=== PATIENT | male | born 1995 | race Caucasian/White ===

== ENCOUNTER 2018-11-28 07:27 | Emergency (ER) | payer OTHER, SELFPAY ==
[2018-11-28 07:27] VITALS: BP 148/81; PULSE 76; RESP 16; TEMP 36.6; O2SAT 98; BMI 37.6
[2018-11-28 07:29] VITALS: TEMP 36.6
--- NOTE | 2018-11-28 07:38 | RAD_ITS ---
STUDY: X-RAY CHEST REASON FOR EXAM: Male, 23 years old. Left-sided chest pain. TECHNIQUE: PA and lateral views of the chest. COMPARISON: None. FINDINGS: The lungs are clear and expanded. There is no demonstrated pleural abnormality. Normal size heart. Normal mediastinum and josh. Normal visualized pulmonary arteries. Normal visualized aortic arch and descending thoracic aorta. Normal visualized thoracic spine. Normal visualized ribs, clavicles, and shoulders. There is no demonstrated abnormality of the visualized soft tissue structures of the upper abdomen. RAD/Chest PA and Lateral IMPRESSION: Normal x-ray examination of the chest. Electronically Signed: Al Zhang MD at 8:52 EST , Service support ,
[2018-11-28] MEDS: Ketorolac 30 MG/ML Syringe IV (07:52)
[2018-11-28 08:35] VITALS: BP 155/76; PULSE 65; RESP 17; TEMP 36.8; O2SAT 98
[2018-11-28 09:09] LABS: D-Dimer Quantitative (DVT/PE) < 0.27 FEU/ug/m (0.27-0.49)
--- NOTE | 2018-11-28 09:47 | ED.VISSUMM ---
- ER Visit Summary Date of Service: 11/28/18 Chief Complaint: [Left-sided chest pain History of Present Illness: The patient is a 23 M [presents to the emergency department with left-sided chest discomfort that started yesterday. Patient states the pain came on gradually. Patient hurts to take a deep breath and certain movements cause increased pain. Patient having a hard time laying on his left side secondary to pain. He denies any trauma. Patient states that he had cold-like symptoms last week but he only felt sick for 1 or 2 days and then felt significantly improved. Patient's had a mild cough and some stuffy nose otherwise. He has had no fevers. Patient rates his pain anywhere from a 6-9 out of 10. Patient did have recent travel in early September he drove from [place] to [place]. He has no history of PE or DVT. No recent surgeries.] Physical Examination: [HEENT-PERRLA, EOMI. Cranial nerves II through XII grossly intact. TMs clear. Mucous membranes moist. No adenopathy. Cardiovascular-regular rate and rhythm without murmur or ectopy Lungs-clear to auscultation, chest wall stable without crepitus or subcu emphysema. I am unable to reproduce his pain with palpation of the left chest wall. Certain movements do cause him increased pain however. Abdomen-normoactive bowel sounds, soft, nontender, no rebound or rigidity, no peritoneal signs. Extremities-intact ?4, normal range of motion, normal pulses, atraumatic] Test Results: [D-dimer was normal at less than 0.27. Chest x-ray was normal.] Emergency Department Course and Treatment: [Patient was given Toradol 30 mill grams IV and significantly felt improved and now rates his pain a 3 out of 10.] Treatment Plan: [Patient will be given a prescription for Naprosyn and [place] for severe pain. I suspect his pain likely musculoskeletal.] Disposition: [Discharged home in stable condition. 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 Impression: [Chest pain-etiology uncertain] This note was generated with [employer] software. It may contain incorrect words, spelling, and punctuation that were not noted in review of the chart prior to signing ED Disposition - Plan for ED Patient: Chief Complaint: Chest Other Referrals: Care Physician,No Primary [Primary Care Provider] -
--- NOTE | 2018-11-28 09:50 | ED.DCSUM_ITS ---
- ER Visit Summary Date of Service: 11/28/18 Chief Complaint: [Left-sided chest pain History of Present Illness: The patient is a 23 M [presents to the emergency department with left-sided chest discomfort that started yesterday. Patient states the pain came on gradually. Patient hurts to take a deep breath and certain movements cause increased pain. Patient having a hard time laying on his left side secondary to pain. He denies any trauma. Patient states that he had cold-like symptoms last week but he only felt sick for 1 or 2 days and then felt significantly improved. Patient's had a mild cough and some stuffy nose otherwise. He has had no fevers. Patient rates his pain anywhere from a 6-9 out of 10. Patient did have recent travel in early September he drove from [place] to [place]. He has no history of PE or DVT. No recent surgeries.] Physical Examination: [HEENT-PERRLA, EOMI. Cranial nerves II through XII grossly intact. TMs clear. Mucous membranes moist. No adenopathy. Cardiovascular-regular rate and rhythm without murmur or ectopy Lungs-clear to auscultation, chest wall stable without crepitus or subcu emphysema. I am unable to reproduce his pain with palpation of the left chest wall. Certain movements do cause him increased pain however. Abdomen-normoactive bowel sounds, soft, nontender, no rebound or rigidity, no peritoneal signs. Extremities-intact ?4, normal range of motion, normal pulses, atraumatic] Test Results: [D-dimer was normal at less than 0.27. Chest x-ray was normal.] Emergency Department Course and Treatment: [Patient was given Toradol 30 mill grams IV and significantly felt improved and now rates his pain a 3 out of 10.] Treatment Plan: [Patient will be given a prescription for Naprosyn and [place] for severe pain. I suspect his pain likely musculoskeletal.] Disposition: [Discharged home in stable condition. 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 Impression: [Chest pain-etiology uncertain] This note was generated with [employer] software. It may contain incorrect words, spelling, and punctuation that were not noted in review of the chart prior to signing ED Disposition - Plan for ED Patient: Chief Complaint: Chest Other Referrals: Care Physician,No Primary [Primary Care Provider] -
--- NOTE | 2018-11-28 09:50 | ED.DEP ---
ED Disposition - Plan for ED Patient: Chief Complaint: Chest Other Instructions: ED Chest Pain Atypical Unkn Cause Prescriptions: Hydrocodone Bitart/Apap 5-325 [[place] 5MG-325MG] 1 tab PO Q4H PRN PRN 2 Days #10 tab PRN Reason: Pain Naproxen [Naprosyn] 500 mg PO BID PRN #20 tab Referrals: Care Physician,No Primary [Primary Care Provider] - Cliff Rose MD [STAFF PHYSICIAN] - 3-5 Days
--- NOTE | 2018-11-28 09:53 | DCINST.ED_ITS ---
ED Disposition - Plan for ED Patient: Chief Complaint: Chest Other Instructions: ED Chest Pain Atypical Unkn Cause Prescriptions: Hydrocodone Bitart/Apap 5-325 [[place] 5MG-325MG] 1 tab PO Q4H PRN PRN 2 Days #10 tab PRN Reason: Pain Naproxen [Naprosyn] 500 mg PO BID PRN #20 tab Referrals: Care Physician,No Primary [Primary Care Provider] - Cliff Rose MD [STAFF PHYSICIAN] - 3-5 Days
[2018-11-28 10:07] VITALS: PULSE 72; RESP 17; TEMP 36.9; O2SAT 98
== END 2018-11-28 10:13 | disposition home or self-care (01) ==
LOC: ED 07:52
PROVIDERS: Emergency Provider Emergency Medicine
DX: R07.9 Chest pain, unspecified (principal); R05 Cough; R09.81 Nasal congestion; Z72.0 Tobacco use
CPT/HCPCS: 71046; 85379; 96374; 99283; A4216